=== PATIENT | male | born 1930 | race African-American/Black ===

== ENCOUNTER 2019-01-28 18:09 | Inpatient (IN) | payer MEDICARE, MEDICAID ==
[~2019-01-28] VITALS: Ht 177.8 cm; Wt 78.5 kg
[2019-01-28 19:29] LABS: CHLORIDE 107 mEq/L (98-107); PROTHROMBIN TIME 10.1 sec (9.6-11.0)
[2019-01-28] MEDS ORDERED: ASPIRIN 325MG EC TABLET PO ONE (19:30)
[2019-01-28 19:31] LABS: BASOPHILS % 0.4 % (0.0-2.0); HEMATOCRIT. 31.1 % (42.0-52.0); HEMOGLOBIN. 10.3 g/dL (14.0-18.0); LYMPHOCYTES % 25.2 % (20.0-50.0); MEAN CORPUSCULAR VOLUME 90.3 fL (80.0-94.0); MEAN PLATELET VOLUME 8.4 fl (7.4-10.4); MONOCYTES % 11.8 % (2.0-8.0); NEUTROPHILS % 61.6 % (40.0-76.0); PLATELET 196 x1000/uL (130-400); RED BLOOD CELL COUNT 3.44 mill/uL (4.7-6.1); RED CELL DISTRIBUTION WIDTH 14.1 % (11.6-14.6)
[2019-01-28 19:33] LABS: ETHANOL BLOOD < 10 mg/dL
[2019-01-28 19:36] LABS: LDL CHOLESTEROL 73 mg/dL (5-100)
[2019-01-28 21:07] LABS: CLARITY URINE CLEAR (CLEAR); COLOR URINE YELLOW (YELLOW); KETONES URINE NEGATIVE (NEGATIVE); LEUKOCYTE ESTERASE URINE NEGATIVE (NEGATIVE); NITRITE URINE NEGATIVE (NEGATIVE); OCCULT BLOOD URINE NEGATIVE (NEGATIVE); PROTEIN URINE 1+ (NEGATIVE); SPECIFIC GRAVITY URINE 1.011 (1.005-1.030); UROBILINOGEN URINE 0.2 E.U./dL (0.2-1.0)
[2019-01-28 21:19] LABS: *AMPHETAMINES SCREEN URINE NEGATIVE (NEGATIVE); *BARBITURATES SCREEN URINE NEGATIVE (NEGATIVE); *BENZODIAZEPINES SCREEN URINE NEGATIVE (NEGATIVE); *COCAINE SCREEN URINE NEGATIVE (NEGATIVE); METHADONE URINE SCREEN NEGATIVE (NEGATIVE); OPIATES URINE SCREEN NEGATIVE (NEGATIVE)
[2019-01-28 21:20] LABS: CANNABINOID URINE SCREEN NEGATIVE (NEGATIVE); PHENCYCLIDINE URINE SCREEN NEGATIVE (NEGATIVE)
[2019-01-29] MEDS ORDERED: LOSA100T32 PO (00:10)
[2019-01-29] MEDS ORDERED: MINO2.5T2 PO (00:11)
[2019-01-29] MEDS ORDERED: NIFE60TA83 PO (00:12)
[2019-01-29] MEDS ORDERED: TAMS-11 PO (00:14)
[2019-01-29] MEDS ORDERED: ACETAMINOPHEN 325MG TABLET PO PRN (00:30)
[2019-01-29] MEDS: CLONIDINE 0.1MG TABLET PO PRN (01:01)
[2019-01-29 01:16] VITALS: BP 200/85
[2019-01-29 08:00] VITALS: BP 128/83
[2019-01-29] MEDS ORDERED: NIFEDIPINE 60 MG PO SCH (09:00)
[2019-01-29] MEDS: LOSARTAN POTASSIUM 100 MG TABLET PO SCH ×2 (09:00→11:05)
[2019-01-29] MEDS ORDERED: ENOXAPARIN 40MG/0.4ML SYR SUBCUT SCH (09:00)
[2019-01-29] MEDS: ASPIRIN 325MG EC TABLET PO SCH (09:16)
[2019-01-29] MEDS: NIFEDIPINE XL 60MG TAB PO SCH ×2 (09:16→20:49)
[2019-01-29] MEDS: MINOXIDIL 2.5MG TABLET PO SCH (09:16)
[2019-01-29] MEDS: ENOXAPARIN 30MG/0.3ML SYR SUBCUT SCH (09:17)
[2019-01-29 10:55] VITALS: BP 174/75
[2019-01-29] MEDS: HYDRALAZINE HCL 50MG TABLET PO SCH ×2 (11:05→20:49)
[2019-01-29 12:00] VITALS: BP 118/89
[2019-01-29 20:00] VITALS: BP 151/73
[2019-01-29] MEDS: ATORVASTATIN CALCIUM 40MG TABLET PO SCH (20:48)
[2019-01-29] MEDS: TAMSULOSIN HCL 0.4MG SR CAPSULE PO SCH (20:50)
[2019-01-29 21:36] LABS: VITAMIN B12 SERUM 644 pg/mL (211-911)
[2019-01-30 01:00] LABS: HEMATOCRIT. 28.2 % (42.0-52.0); HEMOGLOBIN. 9.3 g/dL (14.0-18.0); MEAN CORPUSCULAR HEMOGLOBIN 29.8 pg (28.0-32.0); MEAN CORPUSCULAR VOLUME 90.1 fL (80.0-94.0); MEAN PLATELET VOLUME 8.5 fl (7.4-10.4); PLATELET 158 x1000/uL (130-400); RED BLOOD CELL COUNT 3.13 mill/uL (4.7-6.1); RED CELL DISTRIBUTION WIDTH 14.1 % (11.6-14.6)
[2019-01-30 04:00] VITALS: BP 139/65
[2019-01-30 04:42] LABS: PLATELET ESTIMATE NORMAL
[2019-01-30 08:30] VITALS: BP 141/62
[2019-01-30] MEDS: HYDRALAZINE HCL 50MG TABLET PO SCH ×2 (08:51→21:01)
[2019-01-30] MEDS: MINOXIDIL 2.5MG TABLET PO SCH ×2 (08:51→21:01)
[2019-01-30] MEDS: NIFEDIPINE XL 60MG TAB PO SCH ×2 (08:52→21:00)
[2019-01-30] MEDS: ASPIRIN 325MG EC TABLET PO SCH (08:52)
[2019-01-30] MEDS: LOSARTAN POTASSIUM 100 MG TABLET PO SCH (08:53)
[2019-01-30] MEDS: ENOXAPARIN 30MG/0.3ML SYR SUBCUT SCH (08:54)
[2019-01-30 12:23] VITALS: BP 157/63
[2019-01-30 16:02] VITALS: BP 169/80
[2019-01-30] MEDS: CLONIDINE 0.1MG TABLET PO PRN (16:06)
[2019-01-30 20:00] VITALS: BP 123/62
[2019-01-30] MEDS: TAMSULOSIN HCL 0.4MG SR CAPSULE PO SCH (21:00)
[2019-01-30] MEDS: ATORVASTATIN CALCIUM 40MG TABLET PO SCH (21:01)
[2019-01-31] VITALS: BP 116/69
[2019-01-31 04:00] VITALS: BP 128/80
[2019-01-31 08:30] VITALS: BP 169/76
[2019-01-31] MEDS: ASPIRIN 325MG EC TABLET PO SCH (08:46)
[2019-01-31] MEDS: HYDRALAZINE HCL 50MG TABLET PO SCH (08:46)
[2019-01-31] MEDS: LOSARTAN POTASSIUM 100 MG TABLET PO SCH (08:46)
[2019-01-31] MEDS: CLONIDINE 0.1MG TABLET PO PRN (08:46)
[2019-01-31] MEDS: MINOXIDIL 2.5MG TABLET PO SCH (08:46)
[2019-01-31] MEDS: NIFEDIPINE XL 60MG TAB PO SCH (08:47)
[2019-01-31] MEDS ORDERED: ENOXAPARIN 40MG/0.4ML SYR SUBCUT SCH (09:00)
[2019-01-31 12:00] VITALS: BP 142/62
[2019-01-31 16:14] VITALS: BP 146/71
[2019-01-31 16:26] VITALS: BP 146/71
== END 2019-01-31 20:00 | disposition home or self-care (01) | DRG 683 ==
LOC: ER 18:09 → 7WST 20:08 → EDBEDREQ 20:12 → EDBEDREQTM 20:12 → EDBEDREQSVC 20:12 → ENRESERV 21:46
PROVIDERS: ADMIT Internal Medicine; ATTEND Internal Medicine
DX: N17.9 Acute kidney failure, unspecified (principal); G45.9 Transient cerebral ischemic attack, unspecified; D64.9 Anemia, unspecified; F03.90 Unspecified dementia, unspecified severity, without behavioral disturbance, psychotic disturbance, mood disturbance, and anxiety; I48.91 Unspecified atrial fibrillation; Z86.73 Personal history of transient ischemic attack (TIA), and cerebral infarction without residual deficits; Z79.899 Other long term (current) drug therapy; I12.9 Hypertensive chronic kidney disease with stage 1 through stage 4 chronic kidney disease, or unspecified chronic kidney disease; N18.9 Chronic kidney disease, unspecified
CPT/HCPCS: 36415; 71045; 80048; 80305; 80320; 81003; 82607; 82962; 83036; 83721; 84484; 93005; 93306; 93880; 97162; 99291; C1893; J1650; G0480